=== PATIENT | male | born 1970 | race Caucasian/White ===

== ENCOUNTER → 2020-05-03 | Outpatient (CLI) | payer OTHER ==
--- NOTE | 2020-05-03 13:20 | REP ---
INDICATION: PAIN IN LEGS COMPARISON: None. TECHNIQUE: Real time caldwell scale and Duplex Doppler evaluation of the bilateral lower extremity arterial vasculature using linear high frequency transducer. FINDINGS: Caldwell scale and duplex doppler images demonstrate minimal amounts of atheromatous plaquing with areas of minimal narrowing but no focal stenosis identified. Doppler interrogation demonstrates normal arterial wave forms and velocities bilaterally. KIM bilaterally is 1.0. Peak systolic velocities (cm/sec) Common femoral artery: Right 147; Left 104 Profunda femoris: Right 99; Left 98 SFA (proximal): Right 143; Left 105 SFA (mid): Right 94; Left 87 SFA (distal): Right 94; Left 48 Popliteal artery: Right 75; Left 48 MAYANK (prox.): Right 56; Left 86 Tibioperoneal trunk: Right 53; Left 45 PATENT LITIGATION ASSOCIATE (prox.): Right 39; Left 40 PATENT LITIGATION ASSOCIATE (distal): Right 56; Left 51 MAYANK (distal): Right 67; Left 77 IMPRESSION: Minimal atheromatous changes with minimal narrowing but no focal occlusion or stenosis. <Electronically signed by Shawn Caldwell > 05/03/20 [id number]
--- NOTE | 2020-05-03 13:23 | REP ---
INDICATION: PAIN IN LEGS. TECHNIQUE: Multiple ultrasonographic images of the deep venous structures of the bilateral thighs were obtained from the level of the common femoral vein to the popliteal vein in the longitudinal and transverse scan planes along with Doppler interrogation and color flow Doppler imaging. Subsequent bilateral lower extremity venous reflux study performed with supine and standing techniques. FINDINGS: Bilateral compression venous ultrasound: There is no abnormal echogenic material seen within any of the visualized deep venous structures that would suggest acute thrombosis. Coaptation is unremarkable throughout. Doppler interrogation shows an expected response to respiratory variability and augmentation. The color flow Doppler images show what appears to be a normal vascular pattern throughout. Right venous reflex study: Common femoral vein does show trace reflux with standing Anterior accessory GSV: Present, no reflux GSV at saphenous junction: No reflux, AP 3.9 mm GSV at mid thigh: No reflux, AP 3.1 mm GSV at knee: No reflux, AP 2.4 mm SFV proximal: No reflux SFA mid: No reflux SFA distal: No reflux Popliteal: No reflux LSV: No reflux AP 3.5 mm. Left venous reflux study: Common femoral vein shows trace reflux with standing Anterior accessory GSV: Present, no reflux GSV at saphenous junction: No reflux, AP 4.7 mm GSV at mid thigh: No reflux, AP 3.5 mm GSV at knee: No reflux, AP 2.8 mm SFA proximal: No reflux SFV mid: No reflux SFV distal: Trace reflux present Popliteal: No reflux LSV: Yes reflux, 2.9 mm. The right deep venous system shows trace or low volume a deep system reflux in the common femoral vein but is otherwise normal. The left deep system shows trace reflux with very low volume. There was more reflux in the S SV. Otherwise negative IMPRESSION: There is no ultrasonographic evidence of deep venous thrombosis involving any of the visualized deep venous structures of the bilateral thighs as described above. Right lower extremity venous reflux study shows common femoral trace reflux. Left lower extremity venous reflux study shows common femoral vein with trace reflux and reflux at the distal SFV and LSV. Accredited by the [employer] in Vascular Peripheral Ultrasound. <Electronically signed by Fredo Herrera > 05/03/20 [id number]
== END ==
LOC: M RAD 09:44
PROVIDERS: ATTEND Physician Assistant
DX: M79.606 Pain in leg, unspecified (principal)

== ENCOUNTER → 2020-12-28 | Outpatient (CLI) | payer OTHER ==
--- NOTE | 2020-12-28 15:07 | REP ---
INDICATION: LEFT BREAST LUMP AND TENDERNESS. COMPARISON: None. TECHNIQUE: MLO and CC views bilateral breasts. FINDINGS: Mild fibroglandular tissue is seen bilaterally, somewhat more so on the left than on the right. The findings are compatible with asymmetric gynecomastia. No mass or architectural distortion is seen. No clustered microcalcifications are seen. IMPRESSION: BIRADS/ACR category 2, benign. Findings consistent with asymmetric gynecomastia left greater than right. No suspicious mass. This mammogram was interpreted with the aid of an FDA-approved computer-aided detection system. The patient states she had a clinical breast exam in November 2020. The patient letter being requested is M1. RECOMMENDATION: Clinical correlation and follow-up recommended. <Electronically signed by Shawn Caldwell > 12/28/20 [id number]
== END ==
LOC: M WHC 07:48
PROVIDERS: ATTEND Nurse Practitioner Family
DX: N62 Hypertrophy of breast (principal)
CPT/HCPCS: 77066; G0279

== ENCOUNTER 2021-04-06 08:59 | Day surgery (SDC) | payer OTHER ==
[~2021-04-06] VITALS: Ht 175.3 cm; Wt 88.4 kg
[~2021-04-06 08:59] MED LIST: FAMO40TA3 PO; LISI10TA24 PO; NS 1,000 ML IV ONE; SILD100T PO
[2021-04-06] MEDS ORDERED: LIDOCAINE 2% 100MG/5ML SDV (FOR ANES.) As Ordered ONE (10:57)
[2021-04-06] MEDS ORDERED: propofoL 200 MG/20 ML VIAL As Ordered ONE ×2 (10:57→11:08)
[2021-04-06 11:40] VITALS: BP 122/60
== END 2021-04-06 11:50 | disposition home or self-care (01) ==
LOC: M OPP 08:59
PROVIDERS: ATTEND Internal Medicine Gastroenterology
DX: Z12.11 Encounter for screening for malignant neoplasm of colon (principal); K64.0 First degree hemorrhoids; Z79.899 Other long term (current) drug therapy; Z87.891 Personal history of nicotine dependence; Z80.1 Family history of malignant neoplasm of trachea, bronchus and lung

== ENCOUNTER → 2021-08-23 | Outpatient (CLI) | payer OTHER ==
[~2021-08-23] MED LIST changes: -NS 1,000 ML IV ONE
== END ==
LOC: M SOG 08:10
PROVIDERS: ATTEND Orthopaedic Surgery Hand Surgery
DX: M25.531 Pain in right wrist (principal); M25.532 Pain in left wrist

== ENCOUNTER → 2021-09-06 | Outpatient (CLI) | payer OTHER | LOC: M LABSMTC 10:09 | PROVIDERS: ATTEND Anesthesiology | DX: Z01.812 Encounter for preprocedural laboratory examination (principal); Z20.822 Contact with and (suspected) exposure to COVID-19 ==

== ENCOUNTER 2021-09-09 06:17 | Day surgery (SDC) | payer OTHER ==
[~2021-09-09] VITALS: Ht 175.3 cm; Wt 87.1 kg
[2021-09-09] MEDS ORDERED: propofoL 200 MG/20 ML VIAL As Ordered ONE (07:09)
[2021-09-09] MEDS ORDERED: fentaNYL 100 MCG/2 ML INJECTION As Ordered ONE (07:09)
[2021-09-09] MEDS ORDERED: LIDOCAINE PRES-FREE 2% 10ML AMP As Ordered ONE (07:09)
[2021-09-09] MEDS ORDERED: LR 1,000 ML IV SCH ×2 (07:10→09:20)
[2021-09-09] MEDS ORDERED: MIDAZOLAM INJ 2MG/2ML VIAL (J2250 PER 1MG) As Ordered ONE (07:10)
[2021-09-09] MEDS ORDERED: BUPIVACAINE HCL 0.25% 30ML VIAL As Ordered ONE (08:34)
[2021-09-09] MEDS ORDERED: ACETAMINOPHEN 1000MG 100ML IV BTL (OFIRMEV) (J0131 PER 10MG) As Ordered ONE (08:51)
[2021-09-09] MEDS ORDERED: dexameTHASONE 4 MG/ML 1ML VIAL (J1100 PER 1MG) As Ordered ONE (08:51)
[2021-09-09] MEDS ORDERED: ONDANSETRON 4MG 2ML VIAL As Ordered ONE (08:51)
[2021-09-09] MEDS ORDERED: KETOROLAC 60MG 2ML VIAL As Ordered ONE (08:51)
[2021-09-09] MEDS ORDERED: oxyCODONE 5MG TAB PO PRN (09:20)
[2021-09-09] MEDS ORDERED: fentaNYL 100 MCG/2 ML INJECTION IV PRN (09:20)
[2021-09-09] MEDS ORDERED: ONDANSETRON 4MG 2ML VIAL IV PRN (09:20)
[2021-09-09] MEDS ORDERED: HYDROMORPHONE HCL 0.5 MG/ 0.5 ML SYRINGE (J1170 PER 1) IV PRN (09:20)
[2021-09-09 11:25] VITALS: BP 141/65
== END 2021-09-09 11:40 | disposition home or self-care (01) ==
LOC: M SDC 06:17
PROVIDERS: ATTEND Orthopaedic Surgery Hand Surgery
DX: G56.01 Carpal tunnel syndrome, right upper limb (principal)
CPT/HCPCS: 29848; J0131; J1100; J1885; J2250; J2405; J3010

== ENCOUNTER → 2022-10-27 | Outpatient (CLI) | payer OTHER | LOC: M PLAIMG 09:12 | PROVIDERS: ATTEND Nurse Practitioner Adult Health | DX: M54.16 Radiculopathy, lumbar region (principal) ==

== ENCOUNTER → 2022-11-08 | Outpatient (CLI) | payer OTHER | LOC: M RAD 07:01 | PROVIDERS: ATTEND Nurse Practitioner Family | DX: R51.9 Headache, unspecified (principal) ==

== ENCOUNTER → 2024-05-01 | Outpatient (CLI) | payer OTHER | LOC: M EKG 13:30 | PROVIDERS: ATTEND Registered Nurse | DX: Z53.21 Procedure and treatment not carried out due to patient leaving prior to being seen by health care provider (principal) ==

== ENCOUNTER → 2024-05-08 | Outpatient (CLI) | payer OTHER | LOC: M CARPUL 10:31 | PROVIDERS: ATTEND Internal Medicine Cardiovascular Disease | DX: I49.49 Other premature depolarization (principal); R94.31 Abnormal electrocardiogram [ECG] [EKG]; R06.02 Shortness of breath; R07.9 Chest pain, unspecified ==

== ENCOUNTER → 2024-06-30 | Outpatient (CLI) | payer OTHER | LOC: M PLAIMG 08:38 | PROVIDERS: ATTEND Internal Medicine Cardiovascular Disease | DX: I10 Essential (primary) hypertension (principal); R06.02 Shortness of breath; R94.31 Abnormal electrocardiogram [ECG] [EKG]; I08.0 Rheumatic disorders of both mitral and aortic valves ==